=== PATIENT | female | born 1940 | race Caucasian/White ===

== ENCOUNTER 2019-04-16 16:07 | Emergency (ER) | payer MEDICARE, OTHER ==
[~2019-04-16] VITALS: Ht 160 cm; Wt 58.4 kg
[2019-04-16] MEDS ORDERED: IV NORMAL SALINE 1,000ML 1,000 ML IV ONE (16:45)
[2019-04-16 17:17] LABS: BASO % 1 % (0-3); EOS # 0.2 x10^3/uL (0.0-0.7); EOS % 3 % (0-3); HEMATOCRIT 40.9 % (36.0-47.0); HEMOGLOBIN 13.6 g/dL (12.0-15.5); LYMPH # 1.1 x10^3/uL (1.0-4.8); LYMPH % 18 % (24-48); MEAN CORPUSCULAR HEMOGLOBIN 32 pg (25-35); MEAN CORPUSCULAR HGB CONC 33 g/dL (31-37); MEAN CORPUSCULAR VOLUME 95 fL (79-100); MONO # 0.5 x10^3/uL (0.0-1.1); MONO % 7 % (0-9); NEUT # 4.4 x10^3uL (1.8-7.7); NEUT % 71 % (31-73); PLATELET COUNT 212 x10^3/uL (140-400); RED BLOOD COUNT 4.32 x10^6/uL (3.50-5.40); RED CELL DISTRIBUTION WIDTH 13.5 % (11.5-14.5); WHITE BLOOD COUNT 6.1 x10^3/uL (4.0-11.0)
--- NOTE | 2019-04-16 17:30 | PHYS DOC ---
Past History Past Medical History: Diabetes (ALEX HILLS DO) Past Surgical History: Tonsillectomy (ALEX HILLS DO) Smoking: Non-smoker Alcohol Use: Rarely Drug Use: None (ALEX HILLS DO) Adult General Chief Complaint Chief Complaint: SHORTNESS OF BREATH HPI HPI 78-year-old female presents with report of generalized weakness and malaise is been ongoing for the past few days. Patient reports she thinks she might have caught something on the plane ride from [place] to the [place]. Denies fever or chills. Denies cough. Reports some dyspnea with exertion. Denies leg swelling or calf tenderness. Reports some upper lip crusting. (ALEX HILLS DO) Review of Systems Review of Systems Constitutional: Denies fever or chills; reports malaise Eyes: Denies redness or eye pain HENT: Denies nasal congestion or sore throat Respiratory: Denies cough; reports dyspnea with exertion Cardiovascular: Denies chest pain or palpitations GI: Denies abdominal pain, nausea, or vomiting : Denies dysuria or hematuria Musculoskeletal: Denies back pain or joint pain Integument: Denies rash or skin lesions Neurologic: Denies headache, focal weakness or sensory changes; reports generalized weakness Complete systems were reviewed and found to be within normal limits, except as documented in this note. (ALEX HILLS DO) Current Medications Current Medications Current Medications Medications (Trade) Dose Ordered Sig/James Start Time Stop Time Status Last Admin Dose Admin Sodium Chloride 1,000 ml @ 1,000 mls/hr 1X ONCE 04/16/19 16:45 04/16/19 17:44 (ALEX HILLS DO) Allergies Allergies Allergies Coded Allergies Type Severity Reaction Last Updated Verified No Known Drug Allergies 04/16/19 No (ALEX HILLS DO) Physical Exam Physical Exam Constitutional: Well developed, well nourished, no acute distress, non-toxic appearance HENT: Normocephalic, atraumatic, oropharynx moist Eyes: PERRL, EOMI, conjunctiva normal, no discharge, no nystagmus noted Neck: Normal range of motion, no tenderness, supple Cardiovascular: Heart rate normal, regular rhythm Lungs & Thorax: Bilateral breath sounds equal but diminished at bases, no wheezing Abdomen: Soft, no tenderness Skin: Warm, dry, no erythema, no rash, upper lip eschar noted Extremities: No tenderness, ROM intact, trace edema to BLE Neurologic: Alert and oriented X 3, normal motor function, normal sensory function, no focal deficits noted Psychologic: Affect normal, judgement normal (ALEX HILLS DO) Current Patient Data Vital Signs Vital Signs Date Time Temp Pulse Resp B/P (MAP) Pulse Ox O2 Delivery O2 Flow Rate FiO2 04/16/19 16:07 98.0 84 20 95 Room Air (ALEX HILLS DO) EKG EKG @1710 NSR at 71bpm, NO ST elevation, Q wave in III and aVF, low voltage QRS (ALEX HILLS DO) Radiology/Procedures Radiology/Procedures [] (ALEX HILLS DO) Radiology/[place] [address] IMAGING REPORT Signed PATIENT: FAVIOLA LOUIE ACCOUNT: [id number] : 1940 LOCATION: ER AGE: 78 SEX: F EXAM STATUS: REG ER ORD. PHYSICIAN: VANDANA MARLEY MD REASON: Omni 350,75ml IV.Dyspnea,elevated D-dimer PROCEDURE: CT ANGIOGRAPHY CHEST Chest CTA History: Elevated d-dimer, recent travel Technique: After bolus of intravenous contrast, CT imaging was performed of the chest. Multiplanar reconstruction images to include MIP reconstruction images are submitted. Exposure: One or more of the following individualized dose reduction techniques were utilized for this examination: 1. Automated exposure control 2. Adjustment of the mA and/or kV according to patient size 3. Use of iterative reconstruction technique. Comparison: None Findings: No pulmonary embolism is identified although limited evaluation of smaller and more distal branches. There is no pneumothorax or pleural or pericardial effusion. Thoracic aortic caliber is within normal limits without intraluminal flap. There is prominent coronary calcification. There is 0.6 cm right lower lobe pulmonary nodule image 57 series 12. There is mild atelectasis of the lower lobes bilaterally. There is probable left thyroid nodule poorly evaluated due to artifact created by the contrast bolus, estimated at least 1.1 cm. Impression: 1. No pulmonary embolism is identified. 2. There is prominent coronary calcification. 3. There is 0.6 cm right lower lobe pulmonary nodule for which 6-12 month follow-up is recommended as per revised Fleischner guidelines. 4. There is suspected left thyroid nodule, poorly evaluated due to artifact from contrast bolus. Electronically signed by: Humberto Wing MD (04/16/2019 8:10 PM) [facility] DICTATED AND SIGNED BY: HUMBERTO WING MD DATE: 04/16/192009 (VANDANA MARLEY MD) Course & Med Decision Making Course & Med Decision Making Pertinent Labs and Imaging studies reviewed. (See chart for details) Elderly patient presents with report of generalized weakness and malaise with some dyspnea with exertion. EKG stable. Labs obtained and posted to chart. WBC WNL. Influenza pending. BNP and troponin WNL. Sign out given to Dr. Marley for further evaluation and final disposition. Discussed current findings and plan with patient and family, who acknowledge understanding and agreement. (ALEX HILLS DO) Course & Med Decision Making 1914- "I get really good around these machines..... Can you give me something.. so I can go through this machine..." Pt. reportedly having panic attack in attempt to get CT angio of chest. Will give some Benadryl and Ativan. Impression: 1. Viral Syndrome 2. Dyspnea 3. Fever Blisters lower lip 4. Fatigue 5. Coronary calcifications 6. Pulmonary and Thyroid nodules Pt. declined admission will return if any concerns. Has scheduled follow up with a primary. Patient review pending labs including TSH primary care. (VANDANA MARLEY MD) Dragon Disclaimer Dragon Disclaimer This electronic medical record was generated, in whole or in part, using a voice recognition dictation system. (ALEX HILLS DO) Departure Departure: Impression: Primary Impression: Weakness Additional Impression: Shortness of breath Disposition: HOME/RESIDENCE PRIOR TO ADM Condition: STABLE Referrals: PCP,NO (PCP) Dragon Disclaimer This chart was dictated in whole or in part using Voice Recognition software in a busy, high-work load, and often noisy Emergency Department environment. It may contain unintended and wholly unrecognized errors or omissions. (VANDANA MARLEY MD) Dragon Disclaimer This chart was dictated in whole or in part using Voice Recognition software in a busy, high-work load, and often noisy Emergency Department environment. It may contain unintended and wholly unrecognized errors or omissions. (VANDANA MARLEY MD) Problem Qualifiers ALEX HILLS DO Apr 16, 2019 17:30 VANDANA MARLEY MD Apr 16, 2019 19:16
[2019-04-16 17:44] LABS: ALBUMIN 3.5 g/dL (3.4-5.0); CALCIUM 8.9 mg/dL (8.5-10.1); CREATININE 1.1 mg/dL (0.6-1.0); GFR 47.9; POTASSIUM 3.6 mmol/L (3.5-5.1); TOTAL BILIRUBIN 0.5 mg/dL (0.2-1.0)
[2019-04-16 18:26] LABS: INFLUENZA A PATIENT NEGATIVE (NEGATIVE); INFLUENZA B PATIENT NEGATIVE (NEGATIVE)
[2019-04-16] MEDS ORDERED: CONTRAST GIVEN MC PRN (18:30)
[2019-04-16] MEDS ORDERED: IOHEXOL 350 MG/ML 100 ML VIAL. IV ONE (18:30)
[2019-04-16 18:32] LABS: BACTERIA,URINE FEW /HPF (0-FEW); BILIRUBIN,URINE NEG (NEG); CLARITY,URINE HAZY; COLOR,URINE YELLOW; GLUCOSE,URINE NEG (NEG); NITRITE,URINE NEG (NEG); RBC,URINE 0 /HPF (0-2); SQUAMOUS EPITHELIAL CELL,UR OCC /LPF; UROBILINOGEN,URINE 0.2 mg/dL (0.2 mg/dL)
[2019-04-16] MEDS ORDERED: diphenhydrAMINE 50 MG/ML VIAL IVP ONE (19:30)
[2019-04-16 19:38] VITALS: BP 128/75
--- NOTE | 2019-04-16 20:13 | RAD ---
Chest CTA History: Elevated d-dimer, recent travel Technique: After bolus of intravenous contrast, CT imaging was performed of the chest. Multiplanar reconstruction images to include MIP reconstruction images are submitted. Exposure: One or more of the following individualized dose reduction techniques were utilized for this examination: 1. Automated exposure control 2. Adjustment of the mA and/or kV according to patient size 3. Use of iterative reconstruction technique. Comparison: None Findings: No pulmonary embolism is identified although limited evaluation of smaller and more distal branches. There is no pneumothorax or pleural or pericardial effusion. Thoracic aortic caliber is within normal limits without intraluminal flap. There is prominent coronary calcification. There is 0.6 cm right lower lobe pulmonary nodule image 57 series 12. There is mild atelectasis of the lower lobes bilaterally. There is probable left thyroid nodule poorly evaluated due to artifact created by the contrast bolus, estimated at least 1.1 cm. Impression: 1. No pulmonary embolism is identified. 2. There is prominent coronary calcification. 3. There is 0.6 cm right lower lobe pulmonary nodule for which 6-12 month follow-up is recommended as per revised Fleischner guidelines. 4. There is suspected left thyroid nodule, poorly evaluated due to artifact from contrast bolus. Electronically signed by: Carrillo Wing MD (04/16/2019 8:10 PM) [facility]
--- NOTE | 2019-04-17 04:05 | EKG ---
[address] [address] Test Date: 2019-04-16 Test Time: 17:10:32 Pat Name: FAVIOLA LOUIE Department: Room: Gender: F [employer] Con[employer]ge: : 1940 Requested By: ALEX HILLS Order Number: [id number] Reading MD: Kal Rasmussen MD Measurements Intervals [place] Rate: 71 P: 2 TN: 148 QRS: -8 QRSD: 84 T: 38 QT: 384 QTc: 422 Interpretive Statements SINUS RHYTHM Electronically Signed On 04-25-2019 8:59:28 CDT by Kal Rasmussen MD
== END 2019-04-16 20:55 | disposition home or self-care (01) ==
LOC: ER 16:07
DX: B34.9 Viral infection, unspecified (principal); B00.1 Herpesviral vesicular dermatitis; E04.1 Nontoxic single thyroid nodule; R91.1 Solitary pulmonary nodule; R06.02 Shortness of breath; R53.1 Weakness; R53.83 Other fatigue; I25.84 Coronary atherosclerosis due to calcified coronary lesion; E11.9 Type 2 diabetes mellitus without complications
CPT/HCPCS: 36415; 71275; 80053; 81001; 82553; 83735; 83880; 84443; 84484; 85025; 85379; 87086; 87804; 93005; 96374; 96375; 99285; J1200; J2060; Q9967; J7030

== ENCOUNTER → 2019-05-03 | Outpatient (CLI) | payer MEDICARE, OTHER ==
[2019-04-16 19:38] VITALS: BP 128/75
--- NOTE | 2019-05-03 16:21 | RAD ---
EXAM: CT HEAD WITHOUT CONTRAST. HISTORY: Dizziness, memory loss. TECHNIQUE: Computed tomography of the head was performed without intravenous contrast. One or more of the following individualized dose reduction techniques were utilized for this examination: 1. Automated exposure control. 2. Adjustment of the mA and/or kV according to patient size. 3. Use of iterative reconstruction technique. COMPARISON: None. FINDINGS: There is no intracranial hemorrhage. There are multiple chronic lacunar infarcts bilaterally in the cerebellar hemispheres. Smaller infarcts noted inferiorly in the left insula and in the right thalamus. There is moderate to severe chronic microangiopathic white matter change elsewhere. Prominence of the lateral ventricles and hemispheric sulci indicates moderate atrophy. The visualized paranasal sinuses appear clear. The orbits are unremarkable. The temporal bones are unremarkable. The calvarium reveals no suspicious lesions. IMPRESSION: 1. No acute intracranial findings. 2. 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 3. Moderate atrophy. Electronically signed by: Samia Ryan MD (05/03/2019 4:18 PM) [facility]
--- NOTE | 2019-05-04 12:37 | RAD ---
THYROID ULTRASOUND History: Elevated TSH Comparison: None. Technique: Multiple grayscale and color Doppler images of the thyroid gland were obtained. Findings: Right lobe measures 4.9 x 1.9 x 1.5 cm. Diffuse heterogeneous thyroid. Left thyroid lobe measures 4.2 x 1.4 x 1.5 cm. Diffuse heterogeneous echotexture. Isthmus measures 0.3 cm. Left thyroid hypoechoic solid nodule with macrocalcification measures 0.4 x 0.5 x 0.4 cm. TI-RADS 4. ACR Thyroid Imaging, Reporting And Data System (TI-RADS): White Paper Of The ACR TI-RADS Committee. Journal of the [employer], volume 14, issue 5, pages 587-595 (November 2016). IMPRESSION: 1. Diffusely heterogeneous thyroid gland, may indicate nonspecific thyroiditis. Recommend correlation with thyroid lab values. 2. TI-RADS 4 left thyroid nodule. Recommend follow-up. Electronically signed by: Brody Goetz DO (05/04/2019 12:34 PM) [facility]
== END | disposition home or self-care (01) ==
LOC: US 12:28
PROVIDERS: ATTEND Registered Nurse
DX: I63.81 Other cerebral infarction due to occlusion or stenosis of small artery (principal); R90.82 White matter disease, unspecified; G31.89 Other specified degenerative diseases of nervous system; E06.9 Thyroiditis, unspecified; E04.1 Nontoxic single thyroid nodule; R91.1 Solitary pulmonary nodule
CPT/HCPCS: 70450; 76536

== ENCOUNTER 2019-05-29 14:25 | Emergency (ER) | payer MEDICARE, OTHER ==
[~2019-05-29] VITALS: Ht 160 cm; Wt 58.4 kg
[2019-05-29 15:24] LABS: BASO # 0.1 x10^3/uL (0.0-0.2); BASO % 1 % (0-3); EOS # 0.2 x10^3/uL (0.0-0.7); EOS % 4 % (0-3); HEMATOCRIT 39.3 % (36.0-47.0); HEMOGLOBIN 13.3 g/dL (12.0-15.5); LYMPH # 1.6 x10^3/uL (1.0-4.8); LYMPH % 26 % (24-48); MEAN CORPUSCULAR HEMOGLOBIN 32 pg (25-35); MEAN CORPUSCULAR HGB CONC 34 g/dL (31-37); MEAN CORPUSCULAR VOLUME 94 fL (79-100); MONO # 0.4 x10^3/uL (0.0-1.1); MONO % 7 % (0-9); NEUT # 3.8 x10^3uL (1.8-7.7); NEUT % 63 % (31-73); PLATELET COUNT 197 x10^3/uL (140-400); RED BLOOD COUNT 4.18 x10^6/uL (3.50-5.40); RED CELL DISTRIBUTION WIDTH 13.6 % (11.5-14.5); WHITE BLOOD COUNT 6.1 x10^3/uL (4.0-11.0)
[2019-05-29 15:44] LABS: ALBUMIN 3.8 g/dL (3.4-5.0); ALBUMIN/GLOBULIN RATIO 1.3 (1.0-1.7); CALCIUM 8.9 mg/dL (8.5-10.1); CREATININE 0.8 mg/dL (0.6-1.0); GFR 69.2; POTASSIUM 3.8 mmol/L (3.5-5.1); TOTAL BILIRUBIN 0.3 mg/dL (0.2-1.0); TOTAL PROTEIN 6.8 g/dL (6.4-8.2)
--- NOTE | 2019-05-29 15:53 | PHYS DOC ---
Past History Past Medical History: Diabetes Past Surgical History: Tonsillectomy Smoking: Non-smoker Alcohol Use: Rarely Drug Use: None Adult General Chief Complaint Chief Complaint: SHORTNESS OF BREATH HPI HPI Patient is a 78-year-old female who presents with complaint of shortness of breath that started last night. Patient states that she just feels like she has not been able to get a big enough breath in. She denies any chest pain and she denies any cough. Patient did recently return from a trip to [facility]. Patient states that she has not been running any fever. She states that the shortness of breath is worsened with exertion.[] Review of Systems Review of Systems Constitutional: Denies fever or chills [] Respiratory: Complains of shortness of breath [] Cardiovascular: No additional information not addressed in HPI [] GI: Denies abdominal pain, nausea, vomiting or diarrhea [] Integument: Denies rash or skin lesions [] Neurologic: Denies headache, focal weakness or sensory changes [] All other systems were reviewed and found to be within normal limits, except as documented in this note. Allergies Allergies Allergies Coded Allergies Type Severity Reaction Last Updated Verified No Known Drug Allergies 04/16/19 No Physical Exam Physical Exam Constitutional: Well developed, well nourished, no acute distress, non-toxic appearance. [] HENT: Normocephalic, atraumatic, bilateral external ears normal, oropharynx moist, no oral exudates, nose normal. [] Eyes: PERRLA, EOMI, conjunctiva normal, no discharge. [] Neck: Normal range of motion, no tenderness, supple, no stridor. [] Cardiovascular: Regular rate and rhythm[] Lungs & Thorax: Bilateral breath sounds clear to auscultation [] Abdomen: Bowel sounds normal, soft, no tenderness. [] Skin: Warm, dry, no erythema, no rash. [] Extremities: No tenderness, no cyanosis, no clubbing, ROM intact, with bilateral lower extremity nonpitting edema. [] Neurologic: Alert and oriented X 3, no focal deficits noted. [] Current Patient Data Vital Signs Vital Signs Date Time Temp Pulse Resp B/P (MAP) Pulse Ox O2 Delivery O2 Flow Rate FiO2 05/29/19 14:52 98.4 85 18 96 Room Air Lab Results Laboratory Tests Test 05/29/19 15:11 White Blood Count 6.1 x10^3/uL (4.0-11.0) Red Blood Count 4.18 x10^6/uL (3.50-5.40) Hemoglobin 13.3 g/dL (12.0-15.5) Hematocrit 39.3 % (36.0-47.0) Mean Corpuscular Volume 94 fL (79-100) Mean Corpuscular Hemoglobin 32 pg (25-35) Mean Corpuscular Hemoglobin Concent 34 g/dL (31-37) Red Cell Distribution Width 13.6 % (11.5-14.5) Platelet Count 197 x10^3/uL (140-400) Neutrophils (%) (Auto) 63 % (31-73) Lymphocytes (%) (Auto) 26 % (24-48) Monocytes (%) (Auto) 7 % (0-9) Eosinophils (%) (Auto) 4 % (0-3) H Basophils (%) (Auto) 1 % (0-3) Neutrophils # (Auto) 3.8 x10^3uL (1.8-7.7) Lymphocytes # (Auto) 1.6 x10^3/uL (1.0-4.8) Monocytes # (Auto) 0.4 x10^3/uL (0.0-1.1) Eosinophils # (Auto) 0.2 x10^3/uL (0.0-0.7) Basophils # (Auto) 0.1 x10^3/uL (0.0-0.2) D-Dimer (Wendy) 0.59 mg/L (0.00-0.50) H Sodium Level 145 mmol/L (136-145) Potassium Level 3.8 mmol/L (3.5-5.1) Chloride Level 107 mmol/L (98-107) Carbon Dioxide Level 25 mmol/L (21-32) Anion Gap 13 (6-14) Blood Urea Nitrogen 19 mg/dL (7-20) Creatinine 0.8 mg/dL (0.6-1.0) Estimated GFR (Cockcroft-Gault) 69.2 BUN/Creatinine Ratio 24 (6-20) H Glucose Level 98 mg/dL (70-99) Calcium Level 8.9 mg/dL (8.5-10.1) Total Bilirubin 0.3 mg/dL (0.2-1.0) Aspartate Amino Transferase (AST) 20 U/L (15-37) Alanine Aminotransferase (ALT) 11 U/L (14-59) L Alkaline Phosphatase 70 U/L (46-116) Troponin I Quantitative < 0.017 ng/mL (0-0.055) MH-Zwi-Q-Type Natriuretic Peptide 179 pg/mL (0-449) Total Protein 6.8 g/dL (6.4-8.2) Albumin 3.8 g/dL (3.4-5.0) Albumin/Globulin Ratio 1.3 (1.0-1.7) EKG EKG EKG demonstrates normal sinus rhythm with rate of 84.[] Radiology/Procedures Radiology/Procedures [] Impressions: PROCEDURE: CT ANGIOGRAPHY CHEST CTA scan of the Chest with Contrast (Pulmonary Embolism protocol) 05/29/2019 Clinical History: Shortness of breath. Technique: After the intravenous administration of 80 cc of Omnipaque 350, contiguous, 0.625 mm axial sections were obtained through the chest. 2 mm axial and 3D MIP coronal and sagittal reconstructed images were obtained. Findings: Comparison study is dated 04/16/2019. No filling defect is seen within the major branches of either pulmonary artery. There is no CT evidence of pulmonary embolism. Atherosclerotic calcification of the thoracic aorta and its branches is noted. The thoracic aorta is mildly tortuous but tapers normally. The heart is normal in size. Scattered coronary artery calcifications are seen. Dependent subsegmental atelectasis is seen involving both lungs. A 6 mm noncalcified nodular opacity is seen involving the right lower lobe, unchanged. No area of consolidation is noted. No pneumothorax or pleural effusion is seen. Impression: There is no CT evidence of pulmonary embolism. Electronically signed by: Héctor Manrique MD (05/29/2019 5:01 PM) [facility] Course & Med Decision Making Course & Med Decision Making Pertinent Labs and Imaging studies reviewed. (See chart for details) [] Dragon Disclaimer Dragon Disclaimer This electronic medical record was generated, in whole or in part, using a voice recognition dictation system. Departure Departure: Impression: Primary Impression: Dyspnea Disposition: HOME, SELF-CARE Condition: STABLE Referrals: [facility] (PCP) Patient Instructions: Shortness of Breath Problem Qualifiers Primary Impression: Dyspnea Dyspnea type: unspecified Qualified Codes: R06.00 - Dyspnea, unspecified KEMAR RYAN Jr. DO May 29, 2019 15:53
--- NOTE | 2019-05-29 15:58 | RAD ---
EXAM: CHEST ONE VIEW. HISTORY: Dyspnea. COMPARISON: 04/16/2019. FINDINGS: A frontal view of the chest is obtained. There are no confluent infiltrates. There is no pneumothorax or pleural effusion. The heart is not enlarged. IMPRESSION: 1. No confluent infiltrates. Electronically signed by: Samia Ryan MD (05/29/2019 3:55 PM) [facility]
[2019-05-29] MEDS ORDERED: IOHEXOL 350 MG/ML 100 ML VIAL. IV ONE (16:00)
--- NOTE | 2019-05-29 17:04 | RAD ---
CTA scan of the Chest with Contrast (Pulmonary Embolism protocol) 05/29/2019 Clinical History: Shortness of breath. Technique: After the intravenous administration of 80 cc of Omnipaque 350, contiguous, 0.625 mm axial sections were obtained through the chest. 2 mm axial and 3D MIP coronal and sagittal reconstructed images were obtained. Findings: Comparison study is dated 04/16/2019. No filling defect is seen within the major branches of either pulmonary artery. There is no CT evidence of pulmonary embolism. Atherosclerotic calcification of the thoracic aorta and its branches is noted. The thoracic aorta is mildly tortuous but tapers normally. The heart is normal in size. Scattered coronary artery calcifications are seen. Dependent subsegmental atelectasis is seen involving both lungs. A 6 mm noncalcified nodular opacity is seen involving the right lower lobe, unchanged. No area of consolidation is noted. No pneumothorax or pleural effusion is seen. Impression: There is no CT evidence of pulmonary embolism. Electronically signed by: Héctor Manrique MD (05/29/2019 5:01 PM) [facility]
--- NOTE | 2019-05-30 01:55 | EKG ---
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
== END 2019-05-29 17:57 | disposition home or self-care (01) ==
LOC: ER 14:25
DX: R06.00 Dyspnea, unspecified (principal); E11.9 Type 2 diabetes mellitus without complications
CPT/HCPCS: 36415; 71045; 71275; 80053; 83880; 84484; 85025; 85379; 93005; 99285; Q9967

== ENCOUNTER → 2019-06-15 | Outpatient (CLI) | payer MEDICARE, OTHER ==
[2019-05-29 14:52] VITALS: BP 104/44
--- NOTE | 2019-06-15 12:14 | RAD ---
Bilateral lower extremity venous duplex study 06/15/2019 9:00 AM Clinical History: Elevated d-dimer . This was is the only history provided. Comparison: None available Technique: Using a combination of real time ultrasound imaging and color-flow and pulse Doppler imaging techniques along with graded compression and augmentation, duplex evaluation of the deep venous system of the both lower extremities was performed. Multiple images were obtained. Findings: There is no sonographic evidence of deep venous thrombosis involving the visualized deep venous structures of either lower extremity. Impression: No evidence of deep venous thrombosis involving either lower extremity Electronically signed by: Laurent Srivastava MD (06/15/2019 12:12 PM) [id number]
== END | disposition home or self-care (01) ==
LOC: US 08:37
PROVIDERS: ATTEND Registered Nurse
DX: R79.1 Abnormal coagulation profile (principal); E11.9 Type 2 diabetes mellitus without complications
CPT/HCPCS: 93970

== ENCOUNTER 2020-01-14 00:24 | Emergency (ER) | payer MEDICARE, OTHER ==
[~2020-01-14] VITALS: Ht 160 cm; Wt 48.6 kg
--- NOTE | 2020-01-14 00:28 | PHYS DOC ---
Past History Past Medical History: Arthritis, Diabetes, UTI Past Surgical History: Hysterectomy, Tonsillectomy Past Surgical History Bladder lift and Hysterectomy for prolapsed bladder January 03. Smoking: Non-smoker Alcohol Use: None Drug Use: None General Adult HPI: HPI: ".. I have too much mucus in my mouth... I can't go to sleep... because I am afraid .. I am going to choke on my spit.... this just started tonight ... after dinner...".. Just too much drainage and mucus..." Patient is a 79 year old female who presents with above hx and complaints compulsion she needs to spit. Pt. feels like she will choke on her spit. Pt. reportedly normal at dinner. per son, and she woke him up tonight worried she had to spit too much. Pt. reportedly has not been around any one sick. No recent travel or specific ill contacts. Pt. does have some dementia. Pt. follows with Dr. Medel and Cony for primary care. Pt. recent had hysterectomy for prolapse uterus on January 03. Pt. states she can swallow her spit but does not want to because it taste bad. Pt. states she is normally healthy. No history of travel. No specific ill contacts. Patient at times a very poor historian. Patient obviously has some dementia and obvious memory problems. Review of Systems: Review of Systems: Constitutional: Denies fever or chills Eyes: Denies change in visual acuity HENT: Pt.complaints nasal congestion and thick mucus in her mouth. Respiratory: Denies cough or shortness of breath Cardiovascular: Denies chest pain or edema GI: Denies abdominal pain, nausea, vomiting, bloody stools or diarrhea : Denies dysuria Musculoskeletal: Denies back pain or joint pain Integument: Denies rash Neurologic: Denies headache, focal weakness or sensory changes Endocrine: Denies polyuria or polydipsia Lymphatic: Denies swollen glands Psychiatric: Denies depression or anxiety Heart Score: HEART Score for Chest Pain: HEART Score for Chest Pain Response (Comments) Value History Slighlty/Non-Suspicious 0 ECG Nonspecific Repolarizatio 1 Age > 65 2 Risk Factors 1 or 2 Risk Factors 1 Troponin < Normal Limit 0 Total 4 Risk Factors: Risk Factors: DM, Current or recent (<one month) smoker, HTN, HLP, family history of CAD, obesity. Risk Scores: Score 0 - 3: 2.5% MACE over next 6 weeks - Discharge Home Score 4 - 6: 20.3% MACE over next 6 weeks - Admit for Clinical Observation Score 7 - 10: 72.7% MACE over next 6 weeks - Early Invasive Strategies Family History: Family History: Noncontributory Current Medications: Current Meds: See nursing for home meds Allergies: Allergies: Allergies Coded Allergies Type Severity Reaction Last Updated Verified No Known Drug Allergies 04/16/19 No Physical Exam: PE: Constitutional: no acute distress, non-toxic appearance. [] HENT: Normocephalic, atraumatic, bilateral external ears normal, oropharynx moist,post nasal drainage, no oral exudates, nose swollen turbinates with clear rhinorrhea. Eyes: PERRLA, EOMI, conjunctiva normal, no discharge. [] Neck: Normal range of motion, no tenderness, supple, no stridor. [] Cardiovascular:Heart rate regular rhythm, no murmur [] Lungs & Thorax: Bilateral breath sounds equal apex on auscultation [] Abdomen: Bowel sounds normal, soft, no tenderness, no masses, no pulsatile masses. Surgery scars Skin: Warm, dry, no erythema, no rash. Poor turgor Back: No tenderness, no CVA tenderness. [] Extremities: No tenderness, no cyanosis, no clubbing, ROM intact, no edema. [] Arthritic changes. Neurologic: Alert and oriented X 3, moves extremities on request, has distal sensory, no focal deficits noted constantly spitting small amounts of sputum and to a cup Psychologic: Affect anxious, some obvious memory problems, mood normal. [] EKG: EKG: My interpretation of EKG shows a sinus rhythm at 75 bpm. Mild leftward axis. No findings acute STEMI or contralateral changes. [] Radiology/Procedures: Radiology/Procedures: [][address] [address] IMAGING REPORT Signed PATIENT: FAVIOLA LOUIE ACCOUNT: [id number] : 1940 LOCATION: ER AGE: 79 SEX: F EXAM STATUS: REG ER ORD. PHYSICIAN: VANDANA TORRES MD REASON: Swallowing problems, confusion PROCEDURE: CT HEAD AND CERVICAL SPINE WO CT HEAD AND CERVICAL SPINE WO Date: 01/14/2020 12:52 AM Clinical Indication: Reason: Swallowing problems, confusion / Spl. Instructions: / History: Comparison: 05/03/2019. Technique: 5 mm axial tomographic images were obtained of the head without contrast. These were viewed on brain and bone windows. Noncontrast CT of the cervical spine was performed. Sagittal and coronal reformats were performed and evaluated. One or more of the following dose reduction techniques were utilized: Automated exposure control (AEC), Adjustment of mA and/or kV according to patient size, Use of iterative reconstruction technique such as ASiR, CT scan done according to ALARA and image gently/image wisely HEAD FINDINGS: Mild generalized cerebral and cerebellar volume loss. Extensive nonspecific periventricular hypoattenuation, most commonly seen with chronic small vessel ischemic disease. 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 No intra- or extra-axial mass or fluid collection. No acute hemorrhage. The ventricles are normal in size, shape, and morphology. The leary-white matter junction is normal. The basilar cisterns are patent. The visualized paranasal sinuses are normal. The visualized portions of the orbits and globes are normal. The mastoid air cells are clear. No aggressive osseous lesion or fracture. CERVICAL SPINE FINDINGS: The cervical spine is normally aligned. No acute fracture. No aggressive lytic or blastic osseous lesions. Mild multilevel degenerative disc space height loss. Multilevel mild spinal canal stenosis secondary to disc protrusions and marginal osteophytes. Multilevel mild and moderate neuroforaminal narrowing secondary to uncovertebral arthrosis. Multilevel mild and moderate facet arthrosis. The thyroid gland is stable. No cervical lymphadenopathy. Bilateral carotid atherosclerosis. The visualized aerodigestive tract is normal. The visualized portions of the lungs are clear. IMPRESSION: 1. No acute intracranial process. 2. No acute cervical spine fracture. Electronically signed by: Humberto Calderon MD (01/14/2020 1:38 AM) [facility] DICTATED AND SIGNED BY: HUMBERTO CALDERON MD DATE: 01/14/20 0138 CC: VANDANA TORRES MD; KENNETH CALDERÓN ~ [facility] [address] [place] [id number] IMAGING REPORT Signed PATIENT: FAVIOLA LOUIE ACCOUNT: [id number] : 1940 LOCATION: ER AGE: 79 SEX: F EXAM STATUS: REG ER ORD. PHYSICIAN: VANDANA TORRES MD REASON: Difficulty swallowing, dyspnea PROCEDURE: CHEST PA & LATERAL CHEST PA LATERAL INDICATION: Reason: Difficulty swallowing, dyspnea / Spl. Instructions: / History: . COMPARISON STUDY: 05/29/2019. FINDINGS: Lungs: Normal lung volume. No pulmonary mass or consolidation. Left basilar linear opacity, likely subsegmental atelectasis. The tracheobronchial tree and hilar structures are normal. Pleura: No pleural effusion or pneumothorax. Heart and Mediastinum: The cardiomediastinal silhouette is normal. Mild tortuosity of the thoracic aorta. Bones and Soft Tissues: Degenerative changes of the spine. IMPRESSION: No consolidation. Electronically signed by: Humberto Calderon MD (01/14/2020 1:41 AM) [facility] DICTATED AND SIGNED BY: HUMBERTO CALDERON MD DATE: 01/14/20 0141 CC: VANDANA TORRES MD; KENNETH CALDERÓN ~ Course & Med Decision Making: Course & Med Decision Making Pertinent Labs and Imaging studies reviewed. (See chart for details) Pt. currently insisting on discharge. Pt.to take tyelenol and Ibuprofen for discomfort. May take benadryl 25 up 4 x day for congestion. Patient did take Levaquin 500 mg today. Patient follow up with primary. Patient follow-up pending cultures. Patient encouraged to push vitamin C drinks. Return if any concerns. Patient follow-up with primary Impression: 1. Congestion and Increased Mucus 2. Viral Syndrome 3. Mild elevation Creat. 1.1 4. Urinary tract infection 5. Dementia 6. Mental Status change- complaints of Congestion and need to spit frequently. [] Dragon Disclaimer: Ирина Disclaimer: This electronic medical record was generated, in whole or in part, using a voice recognition dictation system. Departure Departure: Disposition: 01 HOME/RESIDENCE PRIOR TO ADM Condition: STABLE Referrals: KENNETH CALDERÓN (PCP) Scripts Levofloxacin (LEVAQUIN) 500 Mg Tablet 500 MG PO DAILY for urinary tract infection for 3 Days, #3 TAB Prov: VANDANA TORRES MD 01/14/20 Justification of Admission: Justification of Admission: Justification of Admission Dx: N/A Dragon Disclaimer This chart was dictated in whole or in part using Voice Recognition software in a busy, high-work load, and often noisy Emergency Department environment. It may contain unintended and wholly unrecognized errors or omissions. Dragon Disclaimer This chart was dictated in whole or in part using Voice Recognition software in a busy, high-work load, and often noisy Emergency Department environment. It may contain unintended and wholly unrecognized errors or omissions. Dragon Disclaimer This chart was dictated in whole or in part using Voice Recognition software in a busy, high-work load, and often noisy Emergency Department environment. It may contain unintended and wholly unrecognized errors or omissions. VANDANA TORRES MD Jan 14, 2020 00:28
[2020-01-14] MEDS ORDERED: IV RINGERS SOLUTION,LACTATED 1,000 ML IV SCH (01:00)
[2020-01-14 01:35] LABS: CALCIUM 8.9 mg/dL (8.5-10.1); CREATININE 1.1 mg/dL (0.6-1.0); GFR 47.8; POTASSIUM 3.7 mmol/L (3.5-5.1)
--- NOTE | 2020-01-14 01:42 | RAD ---
CT HEAD AND CERVICAL SPINE WO Date: 01/14/2020 12:52 AM Clinical Indication: Reason: Swallowing problems, confusion / Spl. Instructions: / History: Comparison: 05/03/2019. Technique: 5 mm axial tomographic images were obtained of the head without contrast. These were viewed on brain and bone windows. Noncontrast CT of the cervical spine was performed. Sagittal and coronal reformats were performed and evaluated. One or more of the following dose reduction techniques were utilized: Automated exposure control (AEC), Adjustment of mA and/or kV according to patient size, Use of iterative reconstruction technique such as ASiR, CT scan done according to ALARA and image gently/image wisely HEAD FINDINGS: Mild generalized cerebral and cerebellar volume loss. Extensive nonspecific periventricular hypoattenuation, most commonly seen with chronic small vessel ischemic disease. 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 No intra- or extra-axial mass or fluid collection. No acute hemorrhage. The ventricles are normal in size, shape, and morphology. The leary-white matter junction is normal. The basilar cisterns are patent. The visualized paranasal sinuses are normal. The visualized portions of the orbits and globes are normal. The mastoid air cells are clear. No aggressive osseous lesion or fracture. CERVICAL SPINE FINDINGS: The cervical spine is normally aligned. No acute fracture. No aggressive lytic or blastic osseous lesions. Mild multilevel degenerative disc space height loss. Multilevel mild spinal canal stenosis secondary to disc protrusions and marginal osteophytes. Multilevel mild and moderate neuroforaminal narrowing secondary to uncovertebral arthrosis. Multilevel mild and moderate facet arthrosis. The thyroid gland is stable. No cervical lymphadenopathy. Bilateral carotid atherosclerosis. The visualized aerodigestive tract is normal. The visualized portions of the lungs are clear. IMPRESSION: 1. No acute intracranial process. 2. No acute cervical spine fracture. Electronically signed by: Carrillo Calderon MD (01/14/2020 1:38 AM) [facility]
--- NOTE | 2020-01-14 01:44 | RAD ---
CHEST PA LATERAL INDICATION: Reason: Difficulty swallowing, dyspnea / Spl. Instructions: / History: . COMPARISON STUDY: 05/29/2019. FINDINGS: Lungs: Normal lung volume. No pulmonary mass or consolidation. Left basilar linear opacity, likely subsegmental atelectasis. The tracheobronchial tree and hilar structures are normal. Pleura: No pleural effusion or pneumothorax. Heart and Mediastinum: The cardiomediastinal silhouette is normal. Mild tortuosity of the thoracic aorta. Bones and Soft Tissues: Degenerative changes of the spine. IMPRESSION: No consolidation. Electronically signed by: Carrillo Calderon MD (01/14/2020 1:41 AM) [facility]
[2020-01-14 01:47] LABS: ALBUMIN 3.8 g/dL (3.4-5.0); DIRECT BILIRUBIN 0.1 mg/dL (0.0-0.2); TOTAL BILIRUBIN 0.5 mg/dL (0.2-1.0); TOTAL PROTEIN 7.4 g/dL (6.4-8.2)
--- NOTE | 2020-01-14 01:51 | EKG ---
[address] [address] Test Date: 2020-01-14 Test Time: 01:07:42 Pat Name: FAVIOLA LOUIE Department: Room: Gender: F Mild Disabilities Teacher: : 1940 Requested By: VANDANA TORRES Order Number: [id number] Reading MD: Measurements Intervals Supply Rate: 75 P: -90 LA: 132 QRS: 0 QRSD: 82 T: 31 QT: 390 QTc: 438 Interpretive Statements SINUS RHYTHM LEFTWARD AXIS OTHERWISE NORMAL ECG RI6.02 No previous ECG available for comparison
[2020-01-14 02:06] LABS: BASO # 0.1 x10^3/uL (0.0-0.2); BASO % 1 % (0-3); EOS # 0.4 x10^3/uL (0.0-0.7); EOS % 6 % (0-3); HEMOGLOBIN 12.2 g/dL (12.0-15.5); LYMPH # 1.9 x10^3/uL (1.0-4.8); LYMPH % 25 % (24-48); MEAN CORPUSCULAR HEMOGLOBIN 32 pg (25-35); MEAN CORPUSCULAR HGB CONC 34 g/dL (31-37); MEAN CORPUSCULAR VOLUME 95 fL (79-100); MONO # 0.6 x10^3/uL (0.0-1.1); MONO % 9 % (0-9); NEUT # 4.4 x10^3uL (1.8-7.7); NEUT % 60 % (31-73); PLATELET COUNT 266 x10^3/uL (140-400); RED CELL DISTRIBUTION WIDTH 13.5 % (11.5-14.5); WHITE BLOOD COUNT 7.4 x10^3/uL (4.0-11.0)
[2020-01-14 02:25] VITALS: BP 137/77
[2020-01-14 02:57] LABS: AMPHETAMINE/METHAMPHETAMINE NEG (NEG); BARBITURATES NEG (NEG); BENZODIAZEPINES NEG (NEG); CANNABINOIDS NEG (NEG); COCAINE NEG (NEG); METHADONE NEG (NEG); OPIATES NEG (NEG); PHENCYCLIDINE NEG (NEG)
[2020-01-14] MEDS ORDERED: diphenhydrAMINE ORAL ELIXIR 12.5 MG/5 ML ML PO ONE (03:00)
[2020-01-14 03:10] LABS: BILIRUBIN,URINE NEG (NEG); CLARITY,URINE HAZY; COLOR,URINE YELLOW; GLUCOSE,URINE NEG (NEG)
[2020-01-14 03:11] LABS: AMORPHOUS SEDIMENT,UR PRESENT /HPF; BACTERIA,URINE MOD /HPF (0-FEW); NITRITE,URINE NEG (NEG); SQUAMOUS EPITHELIAL CELL,UR FEW /LPF; UROBILINOGEN,URINE 0.2 mg/dL (0.2 mg/dL)
[2020-01-14] MEDS ORDERED: LEVO500T59 PO (03:15)
[2020-01-14] MEDS ORDERED: levoFLOXacin 500 MG TABLET PO ONE (03:15)
== END 2020-01-14 03:45 | disposition home or self-care (01) ==
LOC: ER 00:24
DX: B34.9 Viral infection, unspecified (principal); R94.4 Abnormal results of kidney function studies; N39.0 Urinary tract infection, site not specified; F03.90 Unspecified dementia, unspecified severity, without behavioral disturbance, psychotic disturbance, mood disturbance, and anxiety; R41.82 Altered mental status, unspecified; M19.90 Unspecified osteoarthritis, unspecified site; E11.9 Type 2 diabetes mellitus without complications; Z87.440 Personal history of urinary (tract) infections
CPT/HCPCS: 36415; 70450; 71046; 72125; 80048; 80076; 80307; 81001; 82550; 83690; 83735; 83880; 84443; 84484; 85025; 85610; 85730; 87086; 93005; 96360; 96361; 99285; J7120

== ENCOUNTER 2020-08-15 11:02 | Emergency (ER) | payer MEDICARE, OTHER ==
[~2020-08-15] VITALS: Ht 160 cm; Wt 48.6 kg
[~2020-08-15 11:02] MED LIST: LEVO500T59 PO
--- NOTE | 2020-08-15 11:27 | PHYS DOC ---
Past History Past Medical History: Arthritis, Diabetes, UTI Past Surgical History: Hysterectomy, Tonsillectomy Additional Past Surgical Histo: BLADDER LIFT Smoking: Non-smoker Alcohol Use: None Drug Use: None General Adult EDM: Chief Complaint: ANKLE PROBLEM HPI: HPI: History gained from patient. Patient is an 79-year-old female with past medical history significant for arthritis who presents with chief complaint of right foot pain. She states the pain began gradually yesterday. States the pain is worse over her medial malleolus and deltoid ligament. She has some mild increased redness. States it is painful to touch. States she is able to ambulate although it makes the pain worse. Denies trauma or injury. Denies swelling to the calf. Denies any history of blood clot in legs or lungs. Does not take blood thinners. Denies fevers. Denies history of gout. Denies any injury or trauma. Denies any knee pain. Notes very mild swelling. Has not taken medication prior to arrival. States pain is aching and constant in nature. No other complaints. Review of Systems: Review of Systems: Constitutional: Denies fever or chills Eyes: Denies change in visual acuity HENT: Denies nasal congestion or sore throat Respiratory: Denies cough or shortness of breath Cardiovascular: Denies chest pain or edema GI: Denies abdominal pain, nausea, vomiting, bloody stools or diarrhea : Denies dysuria Musculoskeletal: Positive for ankle pain Integument: Denies rash Neurologic: Denies headache, focal weakness or sensory changes Endocrine: Denies polyuria or polydipsia Lymphatic: Denies swollen glands Psychiatric: Denies depression or anxiety Allergies: Allergies: Allergies Coded Allergies Type Severity Reaction Last Updated Verified No Known Drug Allergies 04/16/19 No Physical Exam: PE: Constitutional: Well developed, well nourished, no acute distress, non-toxic appearance. [] HENT: Normocephalic, atraumatic, bilateral external ears normal, oropharynx moist, no oral exudates, nose normal. [] Eyes: PERRLA, EOMI, conjunctiva normal, no discharge. [] Neck: Normal range of motion, no tenderness, supple, no stridor. [] Cardiovascular:Heart rate regular rhythm, no murmur [] Lungs & Thorax: Bilateral breath sounds clear to auscultation [] Abdomen: soft, no tenderness, no masses, no pulsatile masses. [] Skin: Mild increase in warmth to the medial aspect of the right foot. Mild erythema appreciated. No crepitus. Mild induration. No palpable areas of fluctuance. Back: No tenderness, no CVA tenderness. [] Extremities: R KNEE/ANKLE/FOOT: Focal tenderness to palpation at the deltoid ligament. Tissue compartments are soft. Distal pulses are 2+. Knee extension is intact. Plantar flexion is intact. Proximal fibula is not tender to palpation. Lateral malleolus is not tender to palpation. 5th metatarsal head is not tender to palpation. There is no obvious deformity. Passive ROM is reduced due to pain. Active ROM is not reduced due to pain. No asymmetrical swelling to the calfs bilaterally. Negative Homans' sign. No reproducible posterior calf tenderness. Neurologic: Alert and oriented X 3, normal motor function, normal sensory function, no focal deficits noted. [] Psychologic: Affect normal, judgement normal, mood normal. [] Current Patient Data: Vital Signs: Vital Signs Date Time Temp Pulse Resp B/P (MAP) Pulse Ox O2 Delivery O2 Flow Rate FiO2 08/15/20 11:22 97.5 80 16 117/57 (92) 96 Room Air EKG: EKG: [] Radiology/Procedures: Radiology/Procedures: [address] [address] IMAGING REPORT Signed PATIENT: FAVIOLA LOUIE ACCOUNT: [id number] : 1940 LOCATION: ER AGE: 79 SEX: F EXAM STATUS: REG ER ORD. PHYSICIAN: NIA SINHG DO REASON: medial ankle pain. PROCEDURE: FOOT RIGHT 3V Study: 1. XR EXAM OF ANKLE_RIGHT 3VIEWS 2. XR FOOT_RIGHT 3 VIEWS Indication: Medial sided pain. Comparison: None. Findings: Right ankle: No displaced fracture seen at the ankle or ankle malalignment. The talar dome is intact. No significant ankle joint space narrowing. Vascular calcifications. Osteopenia. Right foot: Great toe operative changes with intact metatarsal surgical screws. Flexion deformities of the lesser toes. No displaced fracture or traumatic malalignment. Scattered arthrosis most pronounced at the great toe MTP joint. Vascular calcifications. No retained radiopaque foreign body. Osteopenia. Impression: Right ankle/right foot: 1. No displaced fracture or traumatic malalignment. 2. Great toe surgical changes with intact metatarsal surgical screws. 3. Osteopenia and scattered degenerative changes most pronounced at the great to e MTP joint. Electronically signed by: ETHAN PRADO MD (08/15/2020 11:49 AM) [id number] DICTATED AND SIGNED BY: ETHAN PRADO MD DATE: 08/15/20 1146 CC: KENNETH CALDERÓN; NIA SINGH DO ~MTH0 0 [] Heart Score: Risk Factors: Risk Factors: DM, Current or recent (<one month) smoker, HTN, HLP, family hi story of CAD, obesity. Risk Scores: Score 0 - 3: 2.5% MACE over next 6 weeks - Discharge Home Score 4 - 6: 20.3% MACE over next 6 weeks - Admit for Clinical Observation Score 7 - 10: 72.7% MACE over next 6 weeks - Early Invasive Strategies Course & Med Decision Making: Course & Med Decision Making Pertinent Labs and Imaging studies reviewed. (See chart for details) Patient is an 79-year-old female who presents with chief complaint of right foot pain. Denies any trauma or injury. She is able to ambulate unassisted. Initial vital signs unremarkable. Foot does show slight overlying erythema to the medial aspect. No signs of septic joint as she does have full active range of motion without difficulty. She may be experiencing early cellulitis. +2-4 DP pulses of the right lower extremity. Low Suspicion for vascular etiology. Ultrasound will be deferred given the patient has no calf swelling, redness over the calf, or reproducible calf tenderness. Tenderness all limited to the medial plantar aspect of the foot. low Suspicion for deep space infection. I do feel it is reasonable to discharge patient home on a course of oral antibiotics. She will be given Keflex. She was instructed to have her primary care physician evaluate her foot in the next 2 to 3 days or to return her facility. Return precautions were discussed and understood. Patient agreeable to plan and stable for discharge. Dragon Disclaimer: Dragstephen Disclaimer: This electronic medical record was generated, in whole or in part, using a voice recognition dictation system. Departure Departure: Impression: Primary Impression: Cellulitis of right foot Disposition: 01 DC HOME SELF CARE/HOMELESS Condition: STABLE Referrals: KENNETH CALDERÓN (PCP) Patient Instructions: Cellulitis Additional Instructions: Please follow-up with your primary care physician or to our facility next 2 to 3 days for wound reevaluation. Scripts Cephalexin (CEPHALEXIN) 500 Mg Capsule 1 CAP PO QID for cellulitis for 7 Days, #28 CAP Prov: NIA SINGH DO 08/15/20 NIA SINGH DO Aug 15, 2020 11:27
[2020-08-15] MEDS ORDERED: ACETAMINOPHEN 500 MG TABLET PO ONE (11:30)
[2020-08-15] MEDS ORDERED: CEPHALEXIN 250 MG CAPSULE PO ONE (11:30)
--- NOTE | 2020-08-15 11:52 | RAD ---
Study: 1. XR EXAM OF ANKLE_RIGHT 3VIEWS 2. XR FOOT_RIGHT 3 VIEWS Indication: Medial sided pain. Comparison: None. Findings: Right ankle: No displaced fracture seen at the ankle or ankle malalignment. The talar dome is intact. No significa nt ankle joint space narrowing. Vascular calcifications. Osteopenia. Right foot: Great toe operative changes with intact metatarsal surgical screws. Flexion deformities of the lesser toes. No displaced fracture or traumatic malalignment. Scattered arthrosis most pronounced at the gr eat toe MTP joint. Vascular calcifications. No retained radiopaque foreign body. Osteopenia. Impression: Right ankle/right foot: 1. No displaced fracture or traumatic malalignment. 2. Great toe surgical changes with intact metatarsal surgical screws. 3. Osteopenia and scattered degenerative changes most pronounced at the great toe MTP joint. Electronically signed by: ETHAN PRADO MD (08/15/2020 11:49 AM) [id number]
[2020-08-15 11:54] VITALS: BP 117/57
[2020-08-15] MEDS ORDERED: CEPH500C PO (11:58)
== END 2020-08-15 12:13 | disposition home or self-care (01) ==
LOC: ER 11:02
DX: L03.115 Cellulitis of right lower limb (principal); M19.90 Unspecified osteoarthritis, unspecified site; E11.9 Type 2 diabetes mellitus without complications; Z87.440 Personal history of urinary (tract) infections
CPT/HCPCS: 73610; 73630; 99284

== ENCOUNTER → 2021-05-15 | Outpatient (CLI) | payer MEDICARE, OTHER ==
[~2021-05-15] MED LIST changes: +CEPH500C PO
--- NOTE | 2021-05-15 16:40 | RAD ---
INDICATION: Screening for osteopenia/osteoporosis. Postmenopausal screening COMPARISON: None. TECHNIQUE: Bone densitometry was performed through the lumbar spine and proximal femur. IMPRESSION: Lumbar Spine: BMD: 0.97 T-Score: -1.8 Range: Osteopenic. There is some sclerosis which could be from degenerative changes. Proximal Femur: BMD: 0.7 T-Score: -1.9 Range: Osteopenic World Health Organization Criteria for Bone Density: T-Score: > -1.0: Normal Range < -1.0 to -2.5: Osteopenic Range < -2.5: Osteoporotic Range Electronically signed by: Cuauhtemoc Marroquin MD (05/15/2021 4:37 PM) [id number]
== END ==
LOC: DXRAD 13:30
PROVIDERS: ATTEND Physician Assistant Medical
DX: M85.89 Other specified disorders of bone density and structure, multiple sites (principal)
CPT/HCPCS: 77080